=== PATIENT | female | born 1990 | race Caucasian/White ===

== ENCOUNTER 2016-10-04 08:23 | Emergency (ER) | payer OTHER ==
[~2016-10-04] VITALS: Ht 165.1 cm; Wt 61.2 kg
[~2016-10-04 08:23] MED LIST: BUPROPION XL150 MG PO; FISH OIL 1,2001 EACH PO; LINZESS290 MC1 PO; LORYNA 3 MG-0.1 EACH PO; MONTELUKAST SOD10 M1 PO; NAPROXEN500 MG PO; VITAMIN C500 M6 PO; VOLTAREN75 MG PO; ZINC50 M2 PO
[2016-10-04 08:26] VITALS: BP 106/68
--- NOTE | 2016-10-04 08:33 | ED SKIN/ALLERGY COMPLAINT ---
History of Present Illness General Chief Complaint: Skin Rash/ Abcess Stated Complaint: RASH ON BODY Source: patient, family Exam Limitations: no limitations Vital Signs & Intake/Output Vital Signs & Intake/Output Vital Signs Date Time Temp Pulse Resp B/P Pulse O2 O2 Flow FiO2 Ox Delivery Rate 10/04 0826 97.9 77 20 106/68 99 Room Air Room Air Allergies Coded Allergies: morphine ("FELT LIKE ON FIRE" 03/16/16) Reconcile Medications Ascorbate Calcium (Vitamin C) (Unknown Strength) TABLET (Unknown Dose) PO DAILY SUPPLEMENT (Reported) Bupropion HCl (Bupropion XL) 150 MG TAB.ER.24H 1 TAB PO QAM MENTAL HEALTH ( Reported) Ethinyl Estradiol/Drospirenone (Loryna 3 MG-0.02 MG Tablet) 1 EACH TABLET 1 TAB PO DAILY CONTROL (Reported) Fish Oil/Dha/Epa (Fish Oil 1,200 MG Fish Oil) (Unknown Strength) CAPSULE ( Unknown Dose) PO DAILY SUPPLEMENT (Reported) Linaclotide (Linzess) 290 MCG CAPSULE 1 CAP PO DAILY GI (Reported) Montelukast Sodium 10 MG TABLET 1 TAB PO PRN ALLERGIES (Reported) Valacyclovir HCl (Valtrex) 1,000 MG TABLET 1 TAB PO TID zoster ZINC (Unknown Strength) TABLET (Unknown Dose) PO DAILY SUPPLEMENT (Reported) Triage Note: PT TO ED WITH C/O RASH TO BACK AND HIP X 1 MONTH, COMES AND GOES BUT NOW IS WORSE. Triage Nurses Notes Reviewed? yes Onset: Abrupt Duration: day(s): (2) Timing: recent history Severity: moderate Location: RIGHT UPPER BACK Possible Factors: no cause identified No Modifying Factors: none : No Patient currently breastfeeds: No HPI: This is a 25-year-old female who presents to the ER with chief complaint of rash on right upper back for the last few days. She states that she has been getting outbreaks on and off for the last several months. She states it is itchy but does not really hurt. No fever or chills. No exposures to medications. She has not traveled recently denies being sick. She has a healthy immune system. She states a few months ago when she has a tiny patch she took a picture intended her core shaper in [place]. They thought it was despite. Now it has become a little bit more Progressive in the last couple of days. She denies any vaginal discharge. There is no rash on hands and feet. Past History Travel History Traveled to [place] past 21 day No Medical History Any Pertinent Medical History? see below for history Neurological: NONE EENT: NONE Cardiovascular: NONE Respiratory: NONE Gastrointestinal: irritable bowel syndrome Hepatic: NONE Renal: NONE Musculoskeletal: NONE Psychiatric: NONE Endocrine: NONE Blood Disorders: NONE Cancer(s): NONE TRUST ADVISOR/Reproductive: NONE Surgical History Surgical History: N Psychosocial History What is your primary language Kazakh Tobacco Use: Never used ETOH Use: occasional use Illicit Drug Use: denies illicit drug use Family History Hx Contributory? No Review of Systems Review of Systems Constitutional: Denies: chills, fever, malaise, weakness. EENTM: Reports: no symptoms. Respiratory: Denies: cough, short of breath, sputum production. Cardiovascular: Denies: chest pain, palpitations, peripheral edema. GI: Denies: abdominal pain, nausea, vomiting. Genitourinary: Denies: discharge, dysuria, frequency, hematuria, pain, urgency. Musculoskeletal: Reports: no symptoms. Skin: Reports: see HPI, rash. Denies: erythema, lumps, moles. Neurological/Psychological: Denies: anxiety, confusion, headache. Hematologic/Endocrine: Denies: bruising, bleeding. Immunologic/Allergic: Denies: splenectomy, HIV/AIDS, lymphadenopathy. All Other Systems: Reviewed and Negative Physical Exam Physical Exam General Appearance: well developed/nourished, awake, mild distress Head: atraumatic Eyes: Bilateral: PERRL, EOMI. Ears, Nose, Throat: normal pharynx, normal ENT inspection, hearing grossly normal Neck: normal inspection, supple Respiratory: normal breath sounds Cardiovascular: regular rate/rhythm Peripheral Pulses: 2+ radial (R), 2+ radial (L) Gastrointestinal: soft, non-tender Back: normal inspection Extremities: normal inspection, normal range of motion, no edema Neurologic/Psych: awake, alert, oriented x 3, normal mood/affect Skin: intact, rash Skin Problem Location: RIGHT UPPER BACK, SMALL AREA LEFT FLANK Skin Problem Character: vesicular, PAPULES ON ERYTHEMATOUS BASE Diagram Body: 1) RASH 2) RASH Progress Differential Diagnosis: contact dermatitis, shingles Plan of Care: ANTIVIRALS, DERMATOLOGY FOLLOW UP . Departure Departure Time of Disposition: 838 Disposition: HOME OR SELF CARE Condition: Stable Clinical Impression Primary Impression: Zoster Referrals: ALFREDO MD,MARIUM (PCP/Family) Additional Instructions: Taking the Valtrex as directed. Your prescription is at your pharmacy. Follow- up with your core shaper in [place]. Return to the ER for any changing or worsening symptoms. Departure Forms: Customer Survey General Discharge Information Prescriptions: Current Visit Scripts Valacyclovir HCl (Valtrex) 1 TAB PO TID #21 TAB
[2016-10-04] MEDS ORDERED: VALTREX1000 MG PO (08:40)
== END 2016-10-04 08:45 ==
LOC: ERH 08:23
DX: B02.9 Zoster without complications (principal)